=== PATIENT | female | born 1960 | race Caucasian/White ===

== ENCOUNTER 2019-02-25 12:25 | Observation (INO) | payer BC ==
[~2019-02-25] VITALS: Ht 154.4 cm; Wt 102.1 kg
[~2019-02-25 12:25] MED LIST: ALPRAZOLAM0.25 MG PO; BUPROPION HCL100 MG PO; DOCUSATE SODIU100 MG PO; ENDOMETRIN100 MG PO; ESTRADIOL1 MG PO; FLONASE SENSIM5.9 ML; FUROSEMIDE40 MG PO; GABAPENTIN300 MG PO; GUAIFENESI100 MG/5 M PO; HYDROCODON-ACE1 EAC9 PO; LEVOTHYROXINE50 MCG PO; LIDOCAINE PAIN1 EACH TOP; LOPERAMIDE2 MG PO; MELATONIN3 MG PO; METHOCARBAMOL750 MG PO; METOPROLOL SUCC25 MG PO; MONTELUKAST SOD10 MG PO; NOVOLIN N100 UNIT/1 SC; PANTOPRAZOLE SO40 MG PO; PEPTO-BISM262 MG/15 PO; POTASSIUM CHLO10 ME1 PO; PROSTAT PO; PROZAC40 MG PO; TRIAMCINOLONE A15 G2 TOP; TRICOR145 MG PO; VITAMIN D250000 UNIT SC
[2019-02-25] MEDS ORDERED: CEFAZOLIN SOD 1 GM VIAL ONE (13:39)
[2019-02-25] MEDS ORDERED: SODIUM CHLORIDE 0.9% 50ML 50 ML ONE (13:39)
[2019-02-25] MEDS ORDERED: SODIUM CHLORIDE 0.9% 1000ML 1,000 ML ONE (13:40)
[2019-02-25] MEDS ORDERED: LIDOCAINE 1% W/EPINEPHRINE 20 ML VIAL ONE (14:34)
[2019-02-25] MEDS ORDERED: SODIUM CHLORIDE 0.9% 1000ML 2,000 ML ONE (14:34)
[2019-02-25] MEDS ORDERED: BACITRACIN 50,000 UNIT VIAL ONE (16:55)
[2019-02-25] MEDS ORDERED: FENTANYL CITRATE/PF 100MCG/2 ML INJ ONE ×2 (16:56→17:58)
[2019-02-25] MEDS ORDERED: MIDAZOLAM HCL 2 MG/2 ML VIAL ONE ×4 (16:56→17:37)
[2019-02-25] MEDS ORDERED: LIDOCAINE HCL 2% LOCAL 20 ML VIAL ONE (17:32)
[2019-02-25] MEDS ORDERED: VANCOMYCIN 1GM/NS 250 ML 250 ML ONE (18:19)
--- NOTE | 2019-02-25 19:05 | NUR ---
report called to Randee CHAMORRO MS 1. pt Alert oriented and appropriate, PERRLA, respirations even and unlabored to room air. Pulses x4 extremities equal and palpable. Cap fill brisk < 3 sec to left hand. Left chest pressure dressing intact as well as presence of left arm immobilizer /sling. education performed. Skin warm and dry integrity appears intact in general. IV 20g left forearm presents healthy w/o s/s of infiltration or complaint. NS 0.9% at 50ml/hr per gravity. Abdomen soft and supple. pt offered toileting, denies need to urinate or defecate. Personal affects with patient. Family not available. Pt verbalizes understanding of POC. pt transferred to 105 on telemetry with personal belongings. -cgf
[2019-02-25 19:19] VITALS: BP 120/55
--- NOTE | 2019-02-25 19:20 | NUR ---
Received patient from photo lab specialist in a stretcher.s/p icd placed.aaox3.no resp.distress.left chest pressure dressing is dry.left arm immobilised with splint .left for arm iv is patent.bed locked and in lowest position.phone and call light within reach.insructed to call for assistance as needed.
[2019-02-25 19:45] VITALS: BP 120/55
[2019-02-25 19:58] VITALS: BP 120/58
[2019-02-25] MEDS ORDERED: INFLUENZA VIRUS VAC SPLIT INJ 0.5 ML SYR IM SCH (20:07)
[2019-02-25] MEDS: MORPHINE SULFATE INJ 4 MG/ML INJ 1ML IV PRN ×2 (21:45→23:58)
[2019-02-25] MEDS: CEFAZOLIN SOD 2 GM/D5W 50ML 50 ML IV SCH (21:46)
[2019-02-25] MEDS: GABAPENTIN 300 MG CAP PO SCH (21:48)
[2019-02-25] MEDS ORDERED: CEFAZOLIN SOD 1 GM/NS 50ML 50 ML IV SCH (22:00)
--- NOTE | 2019-02-25 22:34 | NUR ---
chest x ray taken blood sugar notified to md.no new orders.v/s stable.resting in the bed.
--- NOTE | 2019-02-25 22:51 | Diagnostic Imaging Report ---
EXAMINATION: CHEST SINGLE (PORTABLE) INDICATION: ICD placement COMPARISON: None FINDINGS: AP view TUBES and LINES: Left chest wall cardiac device with leads in the right atrium, right ventricle, and coronary sinus. LUNGS: Lungs are well inflated. Lungs are clear. There is mild prominence of the central pulmonary vasculature, consistent with pulmonary venous congestion. PLEURA: No pleural effusion or pneumothorax. HEART AND MEDIASTINUM: Cardiac size is mildly enlarged. BONES AND SOFT TISSUES: There are degenerative changes in the spine and shoulders. Soft tissues are unremarkable. UPPER ABDOMEN: No free air under the diaphragm. IMPRESSION: Mild cardiomegaly and pulmonary vascular congestion. Signed by: Mitchell uRbio DO on 02/25/2019 10:48 PM
[2019-02-26 00:45] VITALS: BP 133/67
[2019-02-26 04:00] VITALS: BP 108/54
--- NOTE | 2019-02-26 04:10 | Operative Report ---
DATE OF PROCEDURE: 02/25/2019 SURGEON: Jessee Abraham MD PREPROCEDURE DIAGNOSES: 1. 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 2. Congestive heart failure class III. 3. Left bundle branch block. POSTPROCEDURE DIAGNOSIS: 1. 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 2. Congestive heart failure class III. 3. Left bundle branch block. ESTIMATED BLOOD LOSS: 10 mL. COMPLICATIONS: None. PROCEDURES PERFORMED: 1. Biventricular cardiac defibrillator placement. 2. Moderate sedation. Moderate conscious sedation was provided under my direct supervision by a sedation trained nurse. Sedation approximate time 45 minutes, Versed and fentanyl. There were no complications. See sedation form for details. DESCRIPTION OF PROCEDURE: After informed consent was obtained, the patient was brought to the electrophysiology laboratory in a fasting, nonsedated state. The area over her chest was prepped and draped in the usual sterile fashion. Moderate sedation and prophylactic antibiotics were given. 1% lidocaine was used as local anesthetic and a 3 cm skin incision was made in the left subclavicular area. Electrocautery sharp and blunt dissection were used to bridge the muscular fascia and a pocket was created for event implantation of the device. Vascular access was obtained x3 in the left axillary vein using the modified Seldinger technique under fluoroscopy guidance. The three sheaths were placed. Ventricular lead advanced to the RV apex. R-wave is 18, pacing 0.4 at 0.4, impedance 500 and then the coronary sinus was cannulated using AL2 catheter and Ricardo wire. Coronary sinus angiogram demonstrated a good posterolateral branch successfully cannulated. The lead was advanced to these branch the patient threshold 1.8 at 0.4. Then the atrial lead to the right atrial appendage P-wave is 3.8, pacing 0.6 at 0.4. Sheaths were removed from the body. Leads were secured to fascia using Ethibond. Pocket was irrigated with antibiotic solution using the pulse blocker automatic. Hemostasis was meticulous. Leads were connected to the device and entire ICD system placed in the pocket. Incision was closed using absorbable sutures and Dermabond. The patient tolerated the procedure well. Procedure was then complete. SUMMARY OF HARDWARE IMPLANTED: 1. The new defibrillator is a [id number], serial #[id number]. 2. The atrial lead is [employer] [id number]. 3. The right ventricular lead is [employer] [id number]. 4. The left ventricular lead is [employer] [id number]. IMPRESSION: Successful biventricular cardiac defibrillator placement via left axillary vein. PLAN: 1. Routine postop monitoring on telemetry bed. 2. Chest x-ray. 3. Follow up in two weeks. MD ROSIE Dangelo/JOVITA /[id number]
[2019-02-26] MEDS: MORPHINE SULFATE INJ 4 MG/ML INJ 1ML IV PRN ×3 (04:12→14:33)
--- NOTE | 2019-02-26 05:20 | NUR ---
Voided.pain medicine given.stable condition.
[2019-02-26] MEDS: CEFAZOLIN SOD 2 GM/D5W 50ML 50 ML IV SCH ×2 (06:00→13:20)
--- NOTE | 2019-02-26 06:50 | NUR ---
BED SIDE SHIFT REPORT GIVEN TO THE ONCOMING RN.STABLE CONDITION.
[2019-02-26 07:45] VITALS: BP 130/59
[2019-02-26 08:22] VITALS: BP 130/59
[2019-02-26] MEDS: GABAPENTIN 300 MG CAP PO SCH (08:54)
[2019-02-26 11:39] VITALS: BP 120/59
--- NOTE | 2019-02-26 13:45 | NUR ---
Visit made by the Spiritual Care Department Pastoral Visitor, Angie Alexandra. PV provided pastoral presence, prayer, hospitality, and supportive listening. Pastoral Visitor informed pt/family of the scope of [employer] and availability. JOSE ARMANDO SCHAFFER [employer] Spiritual Care Department O: [phone] Pager: [phone] ([phone] calling from)
[2019-02-26] MEDS ORDERED: MINOCYCLINE HCL50 MG PO (14:52)
[2019-02-26] MEDS ORDERED: ULTRAM50 MG PO (14:53)
[2019-02-26] MEDS ORDERED: INFLUENZA VIRUS VAC SPLIT INJ 0.5 ML SYR IM ONE (15:21)
[2019-02-26 16:10] VITALS: BP 147/70
--- NOTE | 2019-02-26 16:50 | NUR ---
CALLED AND SPOKE WITH FACILITY TO DETERMINE PT IS ASSISTED LIVING AND NOT IN THE RESIDENTIAL PORTION OF FACILITY. WAS TOLD THAT YES SHE LIVES IN ROOM 401 WHICH IS ASSISTED LIVING AND A COURTESY TO PLEASE CALL AND GIVE REPORT TO STAFF AT [phone]. MESSI NORRIS PROVIDED THIS COURTESY AND PT WILL DISCHARGE.
== END 2019-02-26 17:07 ==
LOC: CATH LAB 12:25 → MED/SURG 16:02
PROVIDERS: ADMIT Internal Medicine; ATTEND Internal Medicine
DX: I25.5 Ischemic cardiomyopathy (principal); I50.9 Heart failure, unspecified; I44.7 Left bundle-branch block, unspecified
CPT/HCPCS: 33225; 33249; 36415 ×2; 71045; 82948 ×2; C1769; G0378 ×2; J0690 ×2; J2001; J2250; J2270 ×2; J3010; J3370; J7030; 99152; 99153